=== PATIENT | female | born 1995 | race Caucasian/White ===

== ENCOUNTER → 2019-05-07 17:37 | Outpatient (CLI) | payer MEDICAID, SELFPAY ==
[2019-05-07 17:55] LABS: Basophils # 0.1 K/mm3 (0-0.2); Basophils % 0.5 % (0.1-2.0); Eosinophils # 0.3 K/mm3 (0.0-0.4); Eosinophils % 2.9 % (0.1-12.0); Hematocrit 43.7 % (37.0-47.0); Hemoglobin 14.9 g/dL (12.2-16.2); Lymphocytes # 3.1 K/mm3 (0.7-4.5); Lymphocytes % 26.9 % (10-50); Mean Corpuscular HGB Conc 34.2 g/dL (31.8-35.4); Mean Corpuscular Hemoglobin 30.5 pg (27.0-31.2); Mean Corpuscular Volume 89.3 fl (81-99); Mean Platelet Volume 8.5 fl (7.4-10.4); Monocytes # 0.4 K/mm3 (0.1-1.0); Monocytes % 3.6 % (1.7-9.3); Neutrophils # 7.7 K/mm3 (1.8-7.8); Neutrophils % 66.1 % (37.0-80.0); Platelet Count 322 K/mm3 (142-424); Red Blood Count 4.89 M/mm3 (4.20-5.40); Red Cell Distribution Width 12.9 % (11.5-17.5); White Blood Count 11.6 K/mm3 (4.8-10.8)
[2019-05-09 06:53] LABS: HIV Screen 4th Generation wRfx Non Reactive (Non Reactive)
[2019-05-09 09:51] LABS: Hepatitis B Surface Antigen Negative (Negative); Hepatitis C Antibody <0.1 s/co ratio (0.0-0.9); Rapid Plasma Reagin Ab Titer Non Reactive (NonRea<1:1); Rubella Antibodies, IgG 1.95 index (Immune >0.99)
== END ==
PROVIDERS: Visit Provider Obstetrics & Gynecology
DX: Z34.90 Encounter for supervision of normal pregnancy, unspecified, unspecified trimester (principal)
CPT/HCPCS: 36415; 84702; 85025; 86592; 86703; 86762; 86850; 87340; 87380; G0432

== ENCOUNTER → 2019-05-21 10:01 | Outpatient (CLI) | payer MEDICAID, SELFPAY ==
--- NOTE | 2019-05-21 10:01 | US_ITS ---
PROCEDURE: US OB TRANSVAGINAL CLINICAL INDICATION: US OB Dates COMPARISON: No exams were available for comparison FINDINGS: There appears to be a twin intrauterine gestation with 2 separate gestational sacs with surrounding decidual reaction. Twin A gestational sac is not associated with a yolk sac. Mean sac diameter is 1.74 centimeters. Twin B gestational sac is associated with a 4 millimeter yolk sac. Mean sac diameter is 2.26 centimeters. No pole is identified. Follow-up will be necessary to assess viability. Right ovary measures 3.4 x 2.3 x 2.2 centimeters with 9.6 cc volume. Right ovarian cyst 1.1 x 1.2 x 1.2 centimeters is noted. Functional cyst is favored. Left ovary measures 2.9 x 1.8 x 1.6 centimeters. There is no free fluid or lymphadenopathy. IMPRESSION: Intrauterine gestational sacs which would be consistent with a twin gestation but no pole is detected. Correlation with beta hCG values and short-term follow-up exam are recommended in attempt to assess viability. Right ovarian cyst possibly functional Dictated by: Efrain Vazquez 05/21/2019 13:15 Electronically signed by Efrain Vazquez in [facility] 05/21/2019 13:15
== END ==
PROVIDERS: PCP Emergency Medicine; Visit Provider Obstetrics & Gynecology
DX: O26.841 Uterine size-date discrepancy, first trimester (principal)
CPT/HCPCS: 76817

== ENCOUNTER 2019-05-30 10:08 | Emergency (ER) | payer MEDICAID, SELFPAY ==
[2019-05-30 10:20] VITALS: BP 162/94; PULSE 161; RESP 18; TEMP 37.2; O2SAT 98; BMI 34.7
--- NOTE | 2019-05-30 10:20 | PC.NURSE ---
pt runs back to exam 9, is crying, screaming and is anxious. housekeeping aide yosef at bedside with patient. upon entering room, patient hysterically states that my baby is dieing and yall are making me go through this all by myself. pt is extremely upset due to current hospital visitation policies secondary to covid 19 precautions. pt is on her cell phone and after multiple attempts to obtain triage and provide emotional support, patient refuses to cooperate. pt continues to states her grandmother works here and she is going to come down to be with her when she gets here. no visitation policy explained once more to patient with no improvement in patients actions.
--- NOTE | 2019-05-30 10:30 | PC.NURSE ---
dr timmons to evaluate patient and during eval, patient continues to be unruly and is cursing/using foul language with dr timmons. dispatch called and police assistance requested due to continued staff abuse. dr timmons leaves room for now.
--- NOTE | 2019-05-30 10:32 | PC.NURSE ---
Lab at bedside
--- NOTE | 2019-05-30 10:51 | PC.NURSE ---
[facility] at bedside at this time.
[2019-05-30 11:00] LABS: Basophils # 0.1 K/mm3 (0-0.2); Eosinophils # 0.3 K/mm3 (0.0-0.4); Eosinophils % 3.2 % (0.1-12.0); Hematocrit 43.5 % (37.0-47.0); Hemoglobin 14.1 g/dL (12.2-16.2); Lymphocytes # 3.7 K/mm3 (0.7-4.5); Lymphocytes % 34.9 % (10-50); Mean Corpuscular HGB Conc 32.5 g/dL (31.8-35.4); Mean Corpuscular Hemoglobin 29.9 pg (27.0-31.2); Mean Corpuscular Volume 92.1 fl (81-99); Mean Platelet Volume 8.1 fl (7.4-10.4); Monocytes # 0.4 K/mm3 (0.1-1.0); Monocytes % 3.9 % (1.7-9.3); Neutrophils # 6.1 K/mm3 (1.8-7.8); Platelet Count 342 K/mm3 (142-424); Red Blood Count 4.72 M/mm3 (4.20-5.40); Red Cell Distribution Width 13.3 % (11.5-17.5); White Blood Count 10.7 K/mm3 (4.8-10.8)
[2019-05-30 11:07] LABS: Chloride 104 mmol/L (98-107); Potassium 3.8 mmoL/L (3.5-5.1); Sodium 139 mmol/L (136-145)
[2019-05-30 11:09] LABS: Blood Urea Nitrogen 14 mg/dl (7-17); Creatinine Clearance Estimated 157 mL/min (50-200); Estimated Glomerular Filt Rate 102 ml/min (>60); GFR (African American) 123 ML/MIN (>60)
[2019-05-30 11:10] LABS: Alanine Aminotransferase 40 U/L (12-78); Albumin Level 4.4 g/dl (3.5-5.0); Albumin/Globulin Ratio 1.4 (1.1-1.8); Alkaline Phosphatase 53 U/L (38-126); Anion Gap 14.8 mEq/L (5-15); Aspartate Amino Transferase 32 U/L (14-36); Bilirubin,Total 0.2 mg/dl (0.2-1.3); Carbon Dioxide 24 mmol/L (22.0-30.0); Globulin 3.2 g/dL (1.3-3.2); Total Protein,Serum 7.6 g/dl (6.3-8.2)
[2019-05-30 11:11] LABS: Calcium 9.8 mg/dl (8.4-10.2); Glucose 113 mg/dl (74-100)
[2019-05-30 11:24] VITALS: BP 156/91; PULSE 121; RESP 20; O2SAT 99
--- NOTE | 2019-05-30 11:24 | US_ITS ---
PROCEDURE: US OB TRANSVAGINAL CLINICAL INDICATION: vaginal bleeding follow-up to Ultrasound pelvis 05/21/2019, patient actively bleeding at this time COMPARISON: US OB TRANSVAGINAL from 05/21/2019 FINDINGS: Two gestational sacs are seen. There are no echoes in either sac. No yolk sac is seen in either sac. Prolonged scanning show no cardiac activity. IMPRESSION: Apparent in progress, no evidence of viable fetus or pole seen in either sac. Suggest correlation with beta HCG values. Dictated by: Dr. Theo Olmedo MD 05/30/2019 12:[address] Theo Olmedo MD in [facility] 05/30/2019 12:22
[2019-05-30 11:27] LABS: HCG,Quantitative 2800 mIU/ml (0-5.42)
--- NOTE | 2019-05-30 11:28 | PC.NURSE ---
entered room to discuss transvaginal ultrasound. pt still continues to talk on her cell phone and is continuing to ask if her can come in for the ultrasound. pt explained multiple times by staff, myself, police and switch house operator [facility] visitation policy. pt does not accept any emotional support and states that yall are trying to make me do this without my . pt educated and informed that she has the right to refuse any testing/treatment and when she decides if she wants the ultrasound to let staff know.
[2019-05-30 11:29] LABS: HCG Qualitative, Serum Positive (Negative)
--- NOTE | 2019-05-30 11:32 | PC.NURSE ---
pt states she agrees to do ultrasound. kenneth dodd at bedside to explain procedure to patient. pt to ultrasound at this time.
--- NOTE | 2019-05-30 12:35 | PC.NURSE ---
[employer] salesperson ob
--- NOTE | 2019-05-30 12:37 | PC.NURSE ---
DANICA FULLER on phone with dr enciso
--- NOTE | 2019-05-30 12:41 | PC.NURSE ---
ultrasound complete. dr timmons at bedside discussing findings with patient. dr timmons speaks with on the phone per patient request and in detail explains all findings. pt refuses to stay for further discharge instructions and runs out of the ed after final ed physician consultation.
--- NOTE | 2019-05-30 12:45 | [facility].EDUROGF ---
ED Disposition Clinical Impression: Spontaneous Disposition: Home, Self-Care Condition on Discharge: Good Instructions: DI for Vaginal Bleeding Additional Instructions: Please follow-up with Dr. Parker Referrals: Provider,Referral, [Primary Care Provider] - - Critical Care Critical Care Time: No Attestation: On 05/30/19, the high probability of a clinically significant, sudden or life threatening deterioration of the following system(s) required my full and direct attention, intervention and personal management. The time I documented below is in addition to time spent performing reported procedures but includes the following listed in this critical care notation. Medical Decision Making - Medical Records Medical records reviewed: Yes: I reviewed the patient's medical records. - Cuate Inquiry Pt receiving controlled substance: No Vital Signs: 05/30/19 10:20 05/30/19 11:24 Temperature 98.9 F Temperature Source Oral Pulse Rate [Right Radial] 161 H 121 H Respiratory Rate 18 20 Blood Pressure [Right Arm] 162/94 H 156/91 H Blood Pressure Mean [Right Arm] 116 112 02 Sat by Pulse Oximetry 98 99 Oxygen Delivery Method Room Air Room Air - Lab Data Lab results reviewed: Yes: I reviewed the patient's lab results. Lab Results 05/30/19 10:42: WBC 10.7, RBC 4.72, Hgb 14.1, Hct 43.5, MCV 92.1, MCH 29.9, MCHC 32.5, RDW 13.3, Plt Count 342, MPV 8.1, Neut % (Auto) 57.0, Lymph % (Auto) 34.9, Perkins % (Auto) 3.9, Eos % (Auto) 3.2, Baso % (Auto) 1.0, Neut # (Auto) 6.1, Lymph # (Auto) 3.7, Perkins # (Auto) 0.4, Eos # (Auto) 0.3, Baso # (Auto) 0.1 05/30/19 10:42: Sodium 139, Potassium 3.8, Chloride 104, Carbon Dioxide 24, Anion Gap 14.8, BUN 14, Creatinine 0.70, Estimated Creat Clear 157, Estimated GFR 102, Est GFR ( Amer) 123, Glucose 113 H, Calcium 9.8, Total Bilirubin 0.2, AST 32, ALT 40, Alkaline Phosphatase 53, Total Protein 7.6, Albumin 4.4, Globulin 3.2, Albumin/Globulin Ratio 1.4, HCG, Quant 2800 H 05/30/19 10:42: Serum HCG, Qual Positive 05/30/19 10:42: Blood Type A Positive Result diagrams: 05/30/19 10:42 05/30/19 10:42 Orders (Tests/Meds): ORDERS Category Date Time Status Urinalysis and Microscopic Stat Lab 05/30/19 10:25 Ordered - US Data US Images: Other (Transvaginal) Findings Narrative: Patient has 2 gestational sacs present neither 1 have a yolk sac. No pole identified. Patient is having a spontaneous Medical Decision Narrative: Spoke to Dr. Parker about this patient and her ultrasound done today and also one done on the second she did concur that patient is having a spontaneous . She did state to me to let the patient know if she goes through more than 1 pad every 30 minutes that that may be assigned to return back to the ED for evaluation of hemorrhage. Otherwise patient is stable upon discharge labs are normal. Patient will follow-up with Dr. Parker in the next week or 2. Female Urogenital HPI - General Chief complaint: Vaginal Bleeding Stated complaint: 6 wks cramps and bleeding Time Seen by Provider: 05/30/19 12:45 Mode of Arrival: Ambulatory Source of Information: Patient Limitations: No Limitations Description of Symptoms (Recalled from ER Triage Doc. by RN): pt presents to ed with c/o vaginal bleeding. pt states she is 6 weeks and she started cramping last night and today is having vaginal bleeding. - History of Present Illness HPI Narrative: 23-year-old female presents the ED complaining of some abdominal cramping in the lower abdomen also having some vaginal bleeding. Patient was apparently having some bleeding about 10 days ago and a transvaginal ultrasound was done which which showed 2 gestational sacs one sac did not look like it had a viable the other sac did have a yolk sac however no pole was identified at that point. Patient is here in the ED hysterical because she does not have any family
[2019-05-30 12:53] VITALS: BP 128/79; PULSE 117; RESP 17; TEMP 36.8; O2SAT 99
== END 2019-05-30 12:53 | disposition home or self-care (01) ==
PROVIDERS: Emergency Provider Family Medicine
DX: O03.9 Complete or unspecified spontaneous abortion without complication (principal); Z88.0 Allergy status to penicillin; Z72.0 Tobacco use; F12.90 Cannabis use, unspecified, uncomplicated
CPT/HCPCS: 76817; 80053; 84702; 84703; 85025; 86900; 86901; 99283